=== PATIENT | male | born 1975 | race African-American/Black ===

== ENCOUNTER 2018-01-02 09:28 | Emergency (ER) | payer OTHER ==
[2018-01-02 09:40] VITALS: BP 170/79; BMI 38.4
[2018-01-02] MEDS ORDERED: TORADOL 60 MG VIAL IM ONE (09:54)
[2018-01-02] MEDS ORDERED: TORADOL 60 MG VIAL ONE (09:55)
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
== END 2018-01-02 10:39 | disposition home or self-care (01) ==
LOC: ER 09:46
DX: Z04.1 Encounter for examination and observation following transport accident (principal); M25.561 Pain in right knee; V49.9XXA Car occupant (driver) (passenger) injured in unspecified traffic accident, initial encounter
CPT/HCPCS: 29530; 73560; 96372; 99282; J1885